=== PATIENT | male | born 1980 ===

== ENCOUNTER → 2018-07-26 | Outpatient (CLI) | payer BC, OTHER ==
[~2018-07-26] MED LIST: ESOM40CA42 PO; ESOM40CA6 PO
--- NOTE | 2018-07-26 13:57 | RADIOLOGY IMAGING REPORT ---
FACILITY: [facility] PATIENT NAME: Reji Morris : 1980 MR: [id number] V: [id number] EXAM DATE: ORDERING PHYSICIAN: ELLIOT VALENCIA TECHNOLOGIST: Location: [facility] Patient: Reji Morris : 1980 Visit/Account:[id number] Date of Sevice: 07/26/2018 Exam type: GROIN ULTRASOUND History: Right inguinal lump and pain, previous hernia repair with mesh Comparison: None. Findings: Multiple images of the right inguinal region were obtained with and without Valsalva maneuver. There is an outpouching of hypoechoic material in the right inguinal canal measuring approximately 1.9 x 1 .6 x 1.8 cm suspicious for hernia IMPRESSION: 1. Findings are suspicious for right inguinal hernia Report Dictated By: Nimo Carcamo MD at 07/26/2018 1:47 PM Report E-Signed By: Nimo Carcamo MD at 07/26/2018 1:52 PM [id number]
== END ==
LOC: US 00:50
PROVIDERS: ATTEND Physician Assistant Medical
DX: K40.91 Unilateral inguinal hernia, without obstruction or gangrene, recurrent (principal)